=== PATIENT | male | born 1995 | race African-American/Black ===

== ENCOUNTER 2025-08-09 16:16 | Emergency (ER) | payer SELFPAY ==
[~2025-08-09] VITALS: Ht 175.3 cm; Wt 71.0 kg
[2025-08-09 16:19] VITALS: O2SAT 100
[2025-08-09 17:53] LABS: BASOPHILS % 0.4 % (0.0-2.0); EOSINOPHILS % 2.5 % (0.0-5.0); HEMATOCRIT. 45.9 % (42.0-52.0); HEMOGLOBIN. 14.6 g/dL (14.0-18.0); LYMPHOCYTES % 29.9 % (20.0-50.0); MEAN PLATELET VOLUME 7.9 fl (7.4-10.4); MONOCYTES % 7.2 % (2.0-8.0); NEUTROPHILS % 60.0 % (40.0-76.0); PLATELET 180 x1000/uL (130-400); RED BLOOD CELL COUNT 5.50 mill/uL (4.7-6.1); RED CELL DISTRIBUTION WIDTH 13.6 % (11.6-14.6)
[2025-08-09 18:05] LABS: CREATININE 1.0 mg/dL (0.6-1.3); UREA NITROGEN BLOOD 7 mg/dL (9-23)
[2025-08-09 18:07] LABS: ASPARTATE AMINOTRANSFERASE 16 IU/L (<34); BILIRUBIN DIRECT 0.4 mg/dL (<=3.0); BILIRUBIN TOTAL 1.3 mg/dL (0.1-1.0)
[2025-08-09 18:08] LABS: PROTEIN TOTAL 7.4 g/dL (6.0-8.3)
[2025-08-09] MEDS ORDERED: PANT20TA17 MT (18:23)
[2025-08-09] MEDS ORDERED: FAMO40TA70 MT (18:23)
[2025-08-09] MEDS ORDERED: MAG355OR21 MT (18:23)
[2025-08-09] MEDS ORDERED: AMOX250S70 MT (18:29)
[2025-08-09] MEDS: VISCOUS LIDOCAINE 2% 15 ML UDC MM ONE (18:36)
[2025-08-09] MEDS: MAGNESIUM/ALUMINUM HYDROXIDE/SIMETHICONE 30ML UDC PO ONE (18:36)
[2025-08-09] MEDS: FAMOTIDINE 20MG TABLET PO ONE (18:36)
[2025-08-09 18:47] VITALS: BP 120/80; PULSE 75; RESP 14; TEMP 36.7; O2SAT 100
== END 2025-08-09 18:48 | disposition home or self-care (01) ==
LOC: ER 16:16
DX: K21.9 Gastro-esophageal reflux disease without esophagitis (principal); Z98.890 Other specified postprocedural states
CPT/HCPCS: 36415; 71045; 80048; 80076; 83880; 85025; 93005; 99285